=== PATIENT | male | born 1945 | race Caucasian/White ===

== ENCOUNTER 2021-03-28 10:54 | Inpatient (IN) | payer MEDICARE, OTHER, SELFPAY ==
[2021-03-28] VITALS (11 sets, daily range): BP systolic 119–154; BP diastolic 65–81; PULSE 78–111; RESP 16–26; TEMP 36.5–37.8; O2SAT 88–95; BMI 25.1; BMI 23.6
--- NOTE | 2021-03-28 12:51 | EDS_ITS ---
HPI History of Present Illness Chief Complaint: Shortness of Breath Informant: patient Onset/Context/Timing Onset: Weeks (1) Context: Gradual Onset Timing: Continuous Quality: Weakness Location: Generalized Worsened by: Nothing Relieved by: Nothing Narrative Narrative: Patient presents with generalized weakness that has been getting worse over the past week. Patient states he feels weak all over. Patient admits to a cough. Patient denies any shortness of breath. Patient states nothing makes his weakness better nothing makes it worse. Patient is concerned for possible Covid. Patient denies any chest pain. Patient denies any fevers or chills. Patient denies any nausea or vomiting but admits to decreased appetite. PFSH PFSH Medical History no medical history Home Medications NK 03/28/21 [History Last Taken Unknown] Allergy/AdvReac Type Severity Reaction Status Date / Time No Known Allergies Allergy Verified 07/08/13 10:57 Family History (Updated 03/28/21 @ 16:[address] Mulu Marcial MD) Mother Heart disease Hx CHF. Hypertension Father Heart disease Hx CAD, [place]. Myocardial infarction Hypertension Surgical History (Updated 03/28/21 @ 12:[address] Dharmesh Bryant, DO) History of herniorrhaphy Surgical History no surgical history Social History (Updated 03/28/21 @ 16:[address] Mulu Marcial MD) household members: family Smoking Status: Never smoker alcohol intake: never substance use type: does not use ROS ROS ED Constitutional Constitutional ED: Denies chills or fever(s) Eyes Eyes: Denies blurry vision or change in vision ENT ENT ED: Denies rhinorrhea or sore throat Cardiovascular Cardiovascular: Denies chest pain or palpitations Respiratory/Chest Respiratory/Chest: Reports cough; Denies dyspnea Gastrointestinal Gastrointestinal: Denies nausea or vomiting Genitourinary Genitourinary ED: Denies dysuria or hematuria Musculoskeletal Musculoskeletal: Denies back pain or neck pain Integumentary Denies abscess or rash Neurologic Neurologic: Reports weakness; Denies headache(s) Allergic/Immunologic Allergic/Immunologic ED: Denies mouth swelling or urticaria EXAM Physical Exam Const Vital Signs: 03/28/21 10:56 03/28/21 11:42 03/28/21 13:06 Temperature 100.1 F H Temperature Source Temporal Pulse Rate 111 H 87 Respiratory Rate 24 H 24 H Respiratory Effort Short of Breath Respiratory Depth Normal Respiratory Pattern Normal Blood Pressure 119/77 141/81 H Blood Pressure Mean 91 101 Pulse Ox 88 93 91 Oxygen Delivery Method Room Air Nasal Cannula Nasal Cannula Oxygen Flow Rate (L/min) 3 2 03/28/21 13:42 03/28/21 14:39 03/28/21 15:43 Temperature 98.2 F Temperature Source Oral Pulse Rate 84 84 94 Respiratory Rate 22 H 26 H 24 H Respiratory Effort Respiratory Depth Respiratory Pattern Tachypnea Blood Pressure 135/80 H 133/76 H Blood Pressure Mean 98 95 Pulse Ox 93 93 Oxygen Delivery Method Nasal Cannula Room Air Oxygen Flow Rate (L/min) 2 Positive well nourished and well developed General Appearance ED: well developed HEENT Reports moist mucous membranes Neck supple and no JVD Resp normal respiratory effort and clear to auscultation bilaterally Cardio regular rate, regular rhythm and no murmurs GI normal to inspection, nondistended, normoactive bowel sounds and non-tender Palpation: soft Extremity normal to inspection General Extremety ED: Negative for edema or tenderness General Extremity: Negative for edema Neuro oriented x3, CN's II-XII intact bilaterally and no sensory deficits noted Sensorium / Orientation: alert Motor Exam: strength 5/5 throughout Psych mental status grossly normal Skin no rashes or lesions noted MDM MDM MDM Narrative Medical decision making narrative: EKG was obtained. On my interpretation, it showed a normal sinus rhythm with a rate of 87. NC interval, QRS interval, and QTc intervals were all normal. Secor was normal. There are no acute ST or T wave changes. Portable 1 view chest x-ray was obtained. On my interpretation, lung montez right infrahilar and left lingular infiltrates. There is normal cardiac silhouette. Bony thorax is normal. Radiologist also interpreted the x- ray and agrees. CBC and comprehensive metabolic profile were obtained. BUN was 29 creatinine is 1.7. These are increased from previous results. Lactate was elevated at 3.6. COVID-19 rapid antigen was obtained and was negative. Patient was given IV fluids, albuterol inhaler, and Tylenol. Patient was started on Rocephin and Zithromax for pneumonia. Case was discussed with the hospitalist. She recommended obtaining a COVID-19 PCR test. This was ordered. She will admit the patient to her service. Patient and family understood and were agreeable with the plan. All questions were answered. Lab Data Attestation: I reviewed the patient's lab results. Labs: Laboratory Results - last 24 hr 03/28/21 03/28/21 03/28/21 11:39 11:39 11:39 WBC 8.4 RBC 5.28 Hgb 16.6 H Hct 49.2 MCV 93.2 MCH 31.4 MCHC 33.7 RDW Std Deviation 43.9 RDW Coeff of Yahaira 12.8 Plt Count 168 MPV 10.5 Immature Gran % (Auto) 2.500 H Neut % (Auto) 82.0 H Lymph % (Auto) 9.0 L [place] % (Auto) 6.1 Eos % (Auto) 0.0 Baso % (Auto) 0.4 Absolute Neuts (auto) 6.9 Absolute Lymphs (auto) 0.75 L Nucleated RBC % 0 Atypical Lymphocytes RARE Sodium 137 Potassium 3.7 Chloride 100 Carbon Dioxide 26.0 Anion Gap 11 BUN 29 H Creatinine 1.70 H Estim Creat Clear Calc 36.97 Est GFR (MDRD) Af Amer 51 L Est GFR (MDRD) Non-Af 42 L BUN/Creatinine Ratio 17.1 Glucose 135 H Lactic Acid 3.6 H* Calcium 8.9 Total Bilirubin 1.60 H AST 116 H ALT 100 H Alkaline Phosphatase 102 Troponin I High Sens 34 Total Protein 7.9 Albumin 3.1 L Globulin 4.8 H Albumin/Globulin Ratio 0.6 L Radiography Diagnostic Testing: Clinical Impression(s) from Imaging Studies Chest X-Ray 03/28/21 13:18 IMPRESSION: Mild degree of increased markings in the right infrahilar region as well as in the lingular segment of the left upper lobe. Follow-up is recommended. Electronically Signed: Andrea Zuniga MD at 13:35 EST , Service support , EKG Initial EKG: Attestation: I personally reviewed and interpreted this EKG as follows: Interpretation: Sinus Rhythm (87) and No Acute Injury Pattern Treatment and Re-Evaluation Vital Sign Attestation:: Vital signs were reviewed prior to admission. There are still mild tachypnea at 24 but other vital signs are stable. Discharge Plan Triage Chief Complaint: Shortness of Breath ED Provider: Schwiger,Dharmesh Dx/Rx/DC Orders Clinical Impression: Pneumonia, Acute kidney injury, Acidosis, lactic, Severe sepsis Prescriptions: No Action NK RF: 0 Primary Care Provider: Osmel Barrow Referrals: Osmel Barrow MD [Primary Care Provider] - Disposition Disposition: Acute Care Hospital [facility]
--- NOTE | 2021-03-28 12:55 | EKG12_ITS ---
Test Reason : SOB Blood Pressure : / mmHG Vent. Rate : 087 BPM Atrial Rate : 087 BPM P-R Int : 144 ms QRS Dur : 072 ms QT Int : 350 ms P-R-T Axes : 010 -26 -12 degrees QTc Int : 421 ms Normal sinus rhythm Anteroseptal PR, age undetermined, cannot be excluded Inferior PR, age undetermined, cannot be excluded Confirmed by CINTIA DRAPER, EVAN ([id number]), newspaper copy editor MANJULA MAI ([id number]) on 03/30/2021 8:16:59 AM Referred By: REJI Confirmed By:EVAN CHAMBERLAIN MD
[2021-03-28 13:16] LABS: Absolute Lymphocyte Count 0.75 X10^3/uL (0.83-4.51); Absolute Neutrophil Count 6.9 X10^3/uL (2.0-7.7); Basophil# 0.03 X10^3/uL; Basophil% 0.4 % (0-1); Hematocrit 49.2 % (40-54); Hemoglobin 16.6 g/dL (13.0-16.5); Lymphocyte # 0.75 X10^3/ul (0.83-4.51); Mean Corp Hgb Conc 33.7 g/dL (32-36); Mean Corpuscular Hgb 31.4 pg (27.0-32.0); Mean Corpuscular Volume 93.2 fL (80-94); Mean Platelet Vol. 10.5 fl (6.2-12.0); Monocyte# 0.51 X10^3/uL; Monocyte% 6.1 % (0-10); NRBC Flagged by Analyzer 0 % (0-5); Neutrophil # 6.85 X10^3/uL (2.7-7.7); POSITIVE MORPHOLOGY YES; Platelet Count 168 K/mm3 (150-450); RBC Distribution Width CV 12.8 % (11.6-14.6); RBC Distribution Width SD 43.9 fl (35.1-43.9); Red Blood Count 5.28 M/mm3 (4.6-6.2); White Blood Count 8.4 K/mm3 (4.4-11.0)
--- NOTE | 2021-03-28 13:18 | RAD_ITS ---
STUDY: X-RAY CHEST REASON FOR EXAM: Male, 75 years old. Cough TECHNIQUE: Single AP portable view of the chest. COMPARISON: None. FINDINGS: EKG electrodes are seen. Mild increased markings are seen in the right infrahilar region as well as in the lingular segment of the left upper lobe. Follow-up is recommended. There is no demonstrated pleural abnormality. Normal size heart. Normal mediastinum and juventino. Normal visualized pulmonary arteries. There is atherosclerotic calcification of the aortic arch with tortuosity. There are diffuse degenerative changes of the visualized thoracic spine. There is degenerative osteoarthritis of the bilateral shoulders. There is no demonstrated abnormality of the visualized soft tissue structures of the upper abdomen. RAD/Chest 1 View (Portable) IMPRESSION: Mild degree of increased markings in the right infrahilar region as well as in the lingular segment of the left upper lobe. Follow-up is recommended. Electronically Signed: Andrea Zuniga MD at 13:35 EST , Service support ,
[2021-03-28 13:22] LABS: Differential Indicated SCAN CRITERIA MET
[2021-03-28 13:30] LABS: ALB/GLOB Ratio 0.6 RATIO (0.9-2.4); AST(SGOT) 116 U/L (15-37); Alanine Aminotransfer ALT/SGPT 100 U/L (16-61); Albumin, Serum 3.1 g/dL (3.2-5.0); Alkaline Phosphatase 102 U/L (45-117); Anion Gap 11 (5-15); BUN 29 mg/dL (7-18); BUN/Creat Ratio 17.1 RATIO (10-20); Calcium,Total 8.9 mg/dL (8.5-10.1); Chloride 100 mmol/L (98-107); EST Glomerular Filtration Rate 42 mL/min (>60); Est Glom Filt Rate - Afr Amer 51 mL/min (>60); Estimated Creatinine Clearance 36.97 ml/min; Globulin 4.8 g/dL (2.2-4.2); Glucose 135 mg/dL (74-106); Potassium 3.7 mmol/L (3.5-5.1); Protein, Total 7.9 g/dL (6.4-8.2); Sodium Level 137 mmol/L (136-145); Troponin-I HS 34 pg/mL (3.0-78.0)
[2021-03-28 13:34] LABS: Lactic Acid 3.6 mmol/L (0.4-1.9)
[2021-03-28 13:37] LABS: Atypical Lymphocyte RARE %
[2021-03-28] MEDS: Acetaminophen 500 MG Tablet 1000 MG PO (14:38)
[2021-03-28] MEDS: 0.9% Normal Saline 1,000 ML 1000 ML IV (15:36)
--- NOTE | 2021-03-28 16:21 | HP.PCM.HOS_ITS ---
HPI - General General Date of Admission: 03/28/21 Date of Service: 03/28/21 Chief Complaint: COVID +, worsening respiratory symptoms. HPI Narrative The patient is a 75 y/o M w/ no marked PMHx reported but no routine medical care who presents to the [facility] ED on 03/28/21 with history of weakness, fatigue, malaise, body aches, cough and dyspnea worsening x 1 week with oxygenation at home ranging 84 to 86% and upon triage evaluation 88 to 92% with family eventually bring in the patient for consideration for monoclonal infusions. Patient denies specifically any fevers, chills, nausea, emesis, diarrhea, headache, sore throat. Patient has not been vaccinated and is COVID-19. Patient still does work by choice part-time at a grocery store. Work-up in the ED included T1 100.1, heart rate initially 111, respiratory rate 24, 88% on room air with improvement to 93% on 2 L nasal cannula, CBC with WC 8.4, hemoglobin 16.6, platelet 168 with increased immature granulocytes with lymphopenia, CMP with BUN/creatinine 29/1.70, glucose 135, lactic acid 3.6, total bilirubin 1.60, AST/ALT 116/100, high-sensitivity troponin initial 34, chest x-ray with mild degree increased markings right infrahilar region as well as lingular segment left upper lobe, rapid Covid antigen negative, blood culture x2 pending per ED. in the ED patient ministered Rocephin and azithromycin as well as albuterol inhaler, Tylenol and normal saline. Discussed current presentation with ED physician and requested Covid PCR be obtained. [facility] Medical History (Updated 03/28/21 @ 17:[address] Mulu Marcial MD) No significant past medical history Medical History no medical history Home Medications NK 03/28/21 [History Last Taken Unknown] Allergy/AdvReac Type Severity Reaction Status Date / Time No Known Allergies Allergy Verified 07/08/13 10:57 Family History (Updated 03/28/21 @ 16:[address] Mulu Marcial MD) Mother Heart disease Hx CHF. Hypertension Father Heart disease Hx CAD, [place]. Myocardial infarction Hypertension Surgical History (Updated 03/28/21 @ 12:[address] Dharmesh Bryant, DO) History of herniorrhaphy Surgical History no surgical history Social History (Updated 03/28/21 @ 17:[address] uMlu Marcial MD) household members: spouse Smoking Status: Never smoker alcohol intake: never substance use type: does not use ROS ROS Narrative Admission Review of Systems: CONSTITUTIONAL: No weight loss, fever, chills, + weakness or fatigue. HEENT: + Headache. Eyes: No visual loss, blurred vision, double vision or yellow sclerae. Ears, Nose, Throat: No hearing loss, sneezing. SKIN: No rash or itching, lesions, wounds. CARDIOVASCULAR: No chest pain, chest pressure or chest discomfort, palpitations, edema, orthopnea, syncopal events. RESPIRATORY: + shortness of breath, cough, No marked sputum, wheezing, hemoptysis. GASTROINTESTINAL: + anorexia, No nausea, vomiting, diarrhea, abdominal pain, melena, BRBPR. GENITOURINARY: No dysuria, frequency, urgency or retention. NEUROLOGICAL: No headache, dizziness, syncope, paralysis, ataxia, numbness or tingling in the extremities, focal weakness, change in bowel or bladder control, seizure. MUSCULOSKELETAL: No muscle, back pain, joint pain or stiffness. HEMATOLOGIC: No anemia, bleeding or bruising. LYMPHATICS: No enlarged nodes. No history of splenectomy. PSYCHIATRIC: No history of depression or anxiety. ENDOCRINOLOGIC: No reports of sweating, cold or heat intolerance. No polyuria or polydipsia. ALLERGIES: No history of asthma, hives, eczema or rhinitis. Vital Signs Vital Signs Vital Signs: 03/28/21 10:56 03/28/21 11:42 03/28/21 13:06 Temperature 100.1 F H Temperature Source Temporal Pulse Rate 111 H 87 Respiratory Rate 24 H 24 H Respiratory Effort Short of Breath Respiratory Depth Normal Respiratory Pattern Normal Blood Pressure 119/77 141/81 H Blood Pressure Mean 91 101 Pulse Ox 88 93 91 Oxygen Delivery Method Room Air Nasal Cannula Nasal Cannula Oxygen Flow Rate (L/min) 3 2 03/28/21 13:42 03/28/21 14:39 03/28/21 15:43 Temperature 98.2 F Temperature Source Oral Pulse Rate 84 84 94 Respiratory Rate 22 H 26 H 24 H Respiratory Effort Respiratory Depth Respiratory Pattern Tachypnea Blood Pressure 135/80 H 133/76 H Blood Pressure Mean 98 95 Pulse Ox 93 93 Oxygen Delivery Method Nasal Cannula Room Air Oxygen Flow Rate (L/min) 2 Weight Weight: 170 lb Body Mass Index (BMI) 25.1 Physical Exam Narrative Physical Examination: General: Awake, alert, oriented x 3 and cooperative, seated upright in the ED bed, fatigued and ill-appearing, no evidence of any distress. Skin: Normal color, normal turgor, no icterus, no cyanosis. HEENT: AT/NC, EOMI, PERRLA, moderately dry MM, no carotid bruits or JVD noted. Lungs: Mildly diminished, greater bases, mildly rhonchorous right base and mid posteriorly, moderate effort, no evidence of any respiratory distress, no rales or wheezing. Heart: Regular rate with regular rhythm; no gallop, rub audible. Abdomen: Soft, NTTP, ND, mildly hyperactive bowel sounds, no obvious evidence of HSM. Extremities: No cyanosis, clubbing, or edema. Neurological: Patient awake, alert, oriented as noted, cognitive function intact; pupils equally reactive to light and accommodation, cranial nerves II- XII grossly normal, moving all 4 extremities, no focal deficits, strength mildly to moderately globally decreased secondary to acute presentation. Psychiatric: Affect appears fatigued, ill-appearing, no evidence of any respiratory distress, no acute evidence of depressive or anxiety feelings. Results Lab / Micro Data Result Diagrams: 03/28/21 11:39 03/28/21 11:39 Labs: Laboratory Results - last 24 hr 03/28/21 11:39: WBC 8.4, RBC 5.28, Hgb 16.6 H, Hct 49.2, MCV 93.2, MCH 31.4, MCHC 33.7, RDW Std Deviation 43.9, RDW Coeff of Yahaira 12.8, Plt Count 168, MPV 10.5, Immature Gran % (Auto) 2.500 H, Neut % (Auto) 82.0 H, Lymph % (Auto) 9.0 L , [place] % (Auto) 6.1, Eos % (Auto) 0.0, Baso % (Auto) 0.4, Absolute Neuts (auto) 6.9, Absolute Lymphs (auto) 0.75 L, Nucleated RBC % 0, Atypical Lymphocytes RARE 03/28/21 11:39: Sodium 137, Potassium 3.7, Chloride 100, Carbon Dioxide 26.0, Anion Gap 11, BUN 29 H, Creatinine 1.70 H, Estim Creat Clear Calc 36.97, Est GFR (MDRD) Af Amer 51 L, Est GFR (MDRD) Non-Af 42 L, BUN/Creatinine Ratio 17.1, Glucose 135 H, Calcium 8.9, Total Bilirubin 1.60 H, AST 116 H, ALT 100 H, Alkaline Phosphatase 102, Troponin I High Sens 34, Total Protein 7.9, Albumin 3.1 L, Globulin 4.8 H, Albumin/Globulin Ratio 0.6 L 03/28/21 11:39: Lactic Acid 3.6 H* Micro: Microbiology 03/28/21 11:39 Nasal Secretion SARS-CoV-2 Antigen (Rapid) - Final Radiology Impression Chest X-Ray 03/28/21 13:18 IMPRESSION: Mild degree of increased markings in the right infrahilar region as well as in the lingular segment of the left upper lobe. Follow-up is recommended. Electronically Signed: Andrea Zuniga MD at 13:35 EST , Service support , Assessment & Plan Assessment/Plan (1) Pneumonia: QUALIFIERS: Laterality: bilateral Lung location: unspecified part of lung Pneumonia type: due to unspecified organism Qualified Code(s): J18.9 - Pneumonia, unspecified organism (2) Acute kidney injury: (3) Acidosis, lactic: PLAN: The patient is a 75 y/o M w/ no marked PMHx reported but no routine medical care who presents to the [facility] ED on 03/28/21 with history of weakness, fatigue, malaise, body aches, cough and dyspnea worsening x 1 week with oxygenation at home ranging 84 to 86% and upon triage evaluation 88 to 92% with family eventually bring in the patient for consideration for monoclonal infusions. #1. Acute Severe Sepsis secondary to Acute Hypoxia secondary to Acute Bilateral Pneumonia secondary to possibly bilateral bacterial pneumonia, community- acquired versus Acute Viral Syndrome, COVID-19: Will admit to the medical surgical telemetry floor, maintain on COVID precautions pending Covid PCR, will maintain on oxygen with wean as tolerated to room air, PRN albuterol, HOB, IS parameters w/ pending sputum cultures, respiratory viral panel and urine antigens, will additionally obtain Covid inflammatory panel as Covid PCR is pending as noted D-dimer, procalcitonin, CRP, CPK, Ferritin, LDH, trop and BNP, continue supportive care including q 2 hour turning including prone given no prone bed availability and judicious hydration, closely monitor for worsening status for ARDS and multiorgan failure, will continue IV Rocephin and azithromycin but de-escalate off if Covid PCR is positive, will initiate and continue IV decadron x 10 doses if Covid PCR is positive, given presentation timeline patient is currently at day #10 therefore if Covid PCR does return positive given creatinine clearance greater than 30 will also initiate IV remdesivir but defer to discretion of Infectious disease. #2. Acute kidney injury: Secondary to acute presentation #1 with likely GI losses/poor intake. Admission BUN/Cr 29/1.70, prior baseline creatinine noted to be 0.9 however this was in 2013. Will hydrate, hold nephrotoxic medications and repeat chemistry in AM. If no improvement would plan FeNa assessment. #3. Lactic acidosis: Admission lactic acid 3.6, likely secondary to acute presentation #1 with hypoxia, will trend per facility protocol, judicious hydration given acute presentation. #4. Elevated LFTs, bilirubin: Admission total bilirubin 1.60, AST/LT 116/100, likely secondary to acute presentation of a 1, continue to trend. #5. Mild hyperglycemia: Admission glucose 135, possibly stress response, will continue to trend and if appropriate add hemoglobin A1c. #6. DVT prophylaxis: SCDs, renally dosed Lovenox. #7. CODE status: Patient GREGG is his and living will is currently in place. Discussed CODE status at length including difference between FULL code, DNR-CCA and DNR-CC status. Following discussions about the differences in these status, requested DNR-CCA, no intubation status. Advanced Care Planning Face to Face Time: 16 minutes. Charges/Coding Visit Charges Inpatient E&M: 10723 Init Hosp L3 Procedures Hospitalists Procedures: 13233 Advncd Care Plan 30 Min
[2021-03-28 17:10] LABS: Reflex Lactate? Y
[2021-03-28 17:57] LABS: Procalcitonin 0.26 ng/mL (0.00-0.09)
[2021-03-28 17:58] LABS: BNP,B-Type NATRIURETIC PEPTIDE 41.6 pg/mL (0-100)
[2021-03-28 18:05] LABS: D-Dimer Quantitative (DVT/PE) 1.91 FEU/ug/m (0.27-0.49)
[2021-03-28 18:08] LABS: Lactic Acid 1.4 mmol/L (0.4-1.9)
[2021-03-28 18:18] LABS: Ferritin 3731 ng/mL (26-388); LDH 413 U/L (87-241)
--- NOTE | 2021-03-28 18:30 | PCS.PANDOC ---
PANDEMIC DOCUMENTATION INITIATED: Date: 03/28/2021 Time: 183
[2021-03-28] MEDS: 0.9% Normal Saline 1,000 ML 100 ML IV (18:59)
[2021-03-28] MEDS: dexAMETHasone 10 MG/ML Vial 6 MG IV (21:45)
[2021-03-29] VITALS (13 sets, daily range): BP systolic 143–159; BP diastolic 73–83; PULSE 63–85; RESP 16–18; TEMP 36.4–37.3; O2SAT 88–96
--- NOTE | 2021-03-29 07:03 | VDLE_ITS ---
Reason For Study: Elevated D-dimer RIGHT LEFT GSV is normal. GSV is normal. CFV, FV, and PopV are compressible. CFV, FV, and PopV are compressible. T/P Trunk is compressible. T/P Trunk is compressible. PTV is compressible. PTV is compressible. RT PerV is compressible. LT PerV is compressible. Procedure This is a venous duplex using B-mode, color flow and spectral Doppler. Exam performed portable in patient room. A preliminary report was called and/or faxed to [facility]. VL/Venous Duplex US - Garry Extrem Interpretation Summary No evidence for acute deep venous thrombosis bilateral lower extremities with p atent and compressible bilateral great saphenous veins. Ordering Physician: Mulu Marcial Referring Physician: Osmel Barrow Performed By: Ora Curiel RVT
[2021-03-29 07:27] LABS: Absolute Lymphocyte Count 0.67 X10^3/uL (0.83-4.51); Absolute Neutrophil Count 5.2 X10^3/uL (2.0-7.7); Basophil# 0.02 X10^3/uL; Basophil% 0.3 % (0-1); Hematocrit 40.4 % (40-54); Hemoglobin 13.5 g/dL (13.0-16.5); Lymphocyte # 0.67 X10^3/ul (0.83-4.51); Lymphocyte % 10.9 % (19-41); Mean Corp Hgb Conc 33.4 g/dL (32-36); Mean Corpuscular Hgb 30.8 pg (27.0-32.0); Mean Platelet Vol. 10.7 fl (6.2-12.0); Monocyte# 0.24 X10^3/uL; Monocyte% 3.9 % (0-10); NRBC Flagged by Analyzer 0 % (0-5); Neutrophil # 5.18 X10^3/uL (2.7-7.7); Neutrophil % 84.2 % (47-70); POSITIVE MORPHOLOGY YES; Platelet Count 158 K/mm3 (150-450); RBC Distribution Width CV 12.6 % (11.6-14.6); RBC Distribution Width SD 43.2 fl (35.1-43.9); Red Blood Count 4.39 M/mm3 (4.6-6.2); White Blood Count 6.2 K/mm3 (4.4-11.0)
[2021-03-29 07:36] LABS: Differential Indicated SCAN CRITERIA MET
[2021-03-29 07:54] LABS: ALB/GLOB Ratio 0.6 RATIO (0.9-2.4); AST(SGOT) 80 U/L (15-37); Alanine Aminotransfer ALT/SGPT 74 U/L (16-61); Albumin, Serum 2.3 g/dL (3.2-5.0); Alkaline Phosphatase 83 U/L (45-117); Anion Gap 8 (5-15); BUN 27 mg/dL (7-18); BUN/Creat Ratio 30.8 RATIO (10-20); Calcium,Total 8.3 mg/dL (8.5-10.1); Chloride 107 mmol/L (98-107); Creatinine, Serum 0.88 mg/dL (0.70-1.30); EST Glomerular Filtration Rate 90 mL/min (>60); Est Glom Filt Rate - Afr Amer 108 mL/min (>60); Estimated Creatinine Clearance 71.41 ml/min; Glucose 149 mg/dL (74-106); Protein, Total 6.3 g/dL (6.4-8.2); Sodium Level 139 mmol/L (136-145)
[2021-03-29] MEDS: Enoxaparin 30 MG/0.3 ML Syringe SC (07:56)
[2021-03-29] MEDS: dexAMETHasone 10 MG/ML Vial 6 MG IV (07:56)
[2021-03-29] MEDS: 0.9% Saline Lock 10 ML Syringe IV ×2 (07:57→20:58)
[2021-03-29 09:09] LABS: Reactive Lymphocyte RARE
--- NOTE | 2021-03-29 10:58 | CASEMGMT ---
RN CM Assessment Introduced role of RN CM to patient. Patient is alert, oriented and able to participate in RN CM Assessment. Care providers, pharmacy, and demographics verified. Admit Dx: Bilt PNA, Hypoxia, Suspected Covid Re-Admit: No Barriers/Issues: None. Patient states has a good family support system with his children. States was ill but getting better- did not test for Covid. States they both sleep in separate rooms and use separate bathroom. PCP: Osmel Barrow Specialists: None Preferred Pharmacy: [facility] Insurance: [facility] A/B, Physician [place] Rx Benefit: Yes LNOK: Filomena Arce LW/HPOA: States he has completed AD and son Prateek Arce is his HPOA. Aware if brought in- a copy will be scanned on file. Living Arrangements: Lives with in [facility], 1 step to enter. ADL?s: Independent with ambulation and ADLs Transportation: Both patient and drive, likely to transport upon DC. DME: None HHC: None SNF: None Goal: Home and does not think will have any needs. States has walked very little in room but does not think will need HHC. Preference for DME should Home O2 be needed: [employer] or [employer]- List was provided. Other list for HH, SNF provided. DC PLAN: Home with possible Home O2- [employer] or [employer]. TREVON [place]
--- NOTE | 2021-03-29 17:14 | PN.HOSP_ITS ---
Subjective Subjective Patient overnight with no acute events per self and per nursing report. He remained on lower oxygen requirements fortunately. Patient did have elevated dimer with renal function not conducive to CT therefore duplex ultrasound obtained 03/29/2021 with no evidence for acute DVT in the bilateral lower extremities. Patient notes feeling mildly improved since initial ED presentation. Did discuss that patient did have positive Covid PCR therefore antibiotics have been discontinued and patient initiated on IV Decadron therapy. Patient renal function also although elevated upon presentation creatinine clearance allowable for initiation of remdesivir which was started. Patient denies fevers, chills, nausea, emesis, abdominal pain, chest pain. Objective Data Objective Data Vital Signs: Vital Signs Temp Pulse Resp BP Pulse Ox 97.5 F L 85 18 143/81 H 88 03/29/21 14:42 03/29/21 15:00 03/29/21 14:42 03/29/21 14:42 03/29/21 16:07 Oxygen Flow Rate (L/min) 1.5 Oxygen Delivery Method Nasal Cannula Weight: 160 lb 4.417 oz Body Mass Index (BMI) 23.6 Intake & Output: Intake and Output for Last 24 Hours 03/27/21 03/28/21 03/29/21 23:59 23:59 23:59 Intake Total 1795 / 1795 1740 / 1740 Balance 1795 / 1795 1740 / 1740 Medical Nutrition Assessment Dietitian: Malnutrition Criteria Met Start: 03/29/21 15:04 Freq: Status: Active Protocol: Document 03/29/21 15:04 RMA (Rec: 03/29/21 15:04 RMA [id number]) Nutrition Malnutrition Evidence of Malnutrition Exists Yes Malnutrition (severe): Acute Illness/Injury Evidenced By Suboptimal Energy Intake ( Severe),Weight Loss (Severe) Clinical Problem Acute Disease or Injury Related Malnutrition Etiology Severe protein-calorie malnutrition in the context of acute illness related to inadequate oral intake Signs/Symptoms as evidenced by ~5-6% wt loss x 2 weeks and PO meeting less than 50% 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 Status Active Problem Recommendation Dietitian Recommendations/Changes Continue regular diet as ordered. Will add chocolate ensure compact TID w/ meals for calorie/protein repletion. Lab / Micro Data Result Diagrams: 03/29/21 06:55 03/29/21 06:55 Labs: Laboratory Results - last 24 hr 03/28/21 11:39: Ferritin 3731 H, Lactate Dehydrogenase 413 H, C-React Prot Ext Range 128.00 H 03/28/21 11:39: B-Natriuretic Peptide 41.6 03/28/21 11:39: Procalcitonin 0.26 H 03/28/21 11:59: D-Dimer Quant (PE/DVT) 1.91 H* 03/28/21 16:50: COVID-19 ([facility]) Detected 03/28/21 17:24: Lactic Acid 1.4 03/29/21 06:55: WBC 6.2, RBC 4.39 L, Hgb 13.5, Hct 40.4, MCV 92.0, MCH 30.8, MCHC 33.4, RDW Std Deviation 43.2, RDW Coeff of Yahaira 12.6, Plt Count 158, MPV 10.7, Immature Gran % (Auto) 0.700, Neut % (Auto) 84.2 H, Lymph % (Auto) 10.9 L, [place] % (Auto) 3.9, Eos % (Auto) 0.0, Baso % (Auto) 0.3, Absolute Neuts (auto) 5.2, Absolute Lymphs (auto) 0.67 L, Nucleated RBC % 0, Reactive Lymphocytes RARE 03/29/21 06:55: Sodium 139, Potassium 4.0, Chloride 107, Carbon Dioxide 24.0, Anion Gap 8, BUN 27 H, Creatinine 0.88, Estim Creat Clear Calc 71.41, Est GFR (MDRD) Af Amer 108, Est GFR (MDRD) Non-Af 90, BUN/Creatinine Ratio 30.8 H, Glucose 149 H, Calcium 8.3 L, Total Bilirubin 0.80, AST 80 H, ALT 74 H, Alkaline Phosphatase 83, Total Protein 6.3 L, Albumin 2.3 L, Globulin 4.0, Albumin/Globulin Ratio 0.6 L Micro: Microbiology 03/28/21 16:50 Mucosa - Nasopharyngeal Respiratory Panel (PCR) - Final 03/28/21 11:39 Nasal Secretion SARS-CoV-2 Antigen (Rapid) - Final Radiography Diagnostic Testing: Radiology Impression Venous Doppler Study 03/29/21 07:03 Interpretation Summary No evidence for acute deep venous thrombosis bilateral lower extremities with patent and compressible bilateral great saphenous veins. Ordering Physician: Mulu Marcial Referring Physician: Osmel Barrow Performed By: Ora Curiel RVT Physical Exam Narrative Physical Examination: General: Awake, alert, oriented x 3 and cooperative, seated upright in the PCU bed, fatigued appearing, notes feeling improved since day prior. Skin: Normal color, normal turgor, no icterus, no cyanosis. HEENT: AT/NC, EOMI, PERRLA, improved mildly dry MM Lungs: Mildly diminished, greater bases, mildly rhonchorous right base and mid posteriorly, improving effort, no rales or wheezing. Heart: Regular rate with regular rhythm; no gallop, rub audible. Abdomen: Soft, NTTP, ND, normalized bowel sounds. Extremities: No cyanosis, clubbing, or edema. Neurological: Patient awake, alert, oriented as noted, cognitive function intact; pupils equally reactive to light and accommodation, cranial nerves II- XII grossly normal, moving all 4 extremities, no focal deficits, strength mohsen ins mildly to moderately globally decreased secondary to acute presentation. Psychiatric: Affect appears fatigued, no acute evidence of depressive or anxiety feelings. Assessment & Plan Assessment/Plan (1) Pneumonia: QUALIFIERS: Pneumonia type: due to unspecified organism Laterality: bilateral Lung location: unspecified part of lung Qualified Code(s): J18.9 - Pneumonia, unspecified organism (2) Acute kidney injury: (3) Acidosis, lactic: PLAN: The patient is a 75 y/o M w/ no marked PMHx reported but no routine medical care who presents to the [facility] ED on 03/28/21 with history of weakness, fatigue, malaise, body aches, cough and dyspnea worsening x 1 week with oxygenation at home ranging 84 to 86% and upon triage evaluation 88 to 92% with family eventually bring in the patient for consideration for monoclonal infusions. #1. Acute Severe Sepsis secondary to Acute Hypoxia secondary to Acute Bilateral Pneumonia secondary to Acute Viral Syndrome, COVID-19: Patient was admitted to medical surgical telemetry for, Covid PCR did return positive, patient m aintained on Covid precautions to be continued through 04/09/21, sputum cultures requested, respiratory viral panel negative, urine antigens negative, Covid inflammatory panel obtained, duplex ultrasound bilateral lower extremities obtained with no acute DVTs noted initially deferred CTPA given patient elevated renal function day prior with judicious hydration, initiated and maintained on IV decadron x 10 doses and given presentation timeline with creatinine clearance greater than 30 patient also initiated and continued on IV remdesivir but defer to discretion of Infectious disease. #2. Acute kidney injury: Secondary to acute presentation #1 with likely GI losses/poor intake. Admission BUN/Cr 29/1.70, prior baseline creatinine noted to be 0.9 however this was in 2013. Patient judiciously hydrated overnight with hold on any nephrotoxic regimen, 03/29/2021 BUN/creatinine significantly improved 27/0.88, resolved. #3. Lactic acidosis: Admission lactic acid 3.6, likely secondary to acute presentation #1 with hypoxia, will trend per facility protocol, judicious hydration given acute presentation. #4. Elevated LFTs, bilirubin: Admission total bilirubin 1.60, AST/LT 116/100, likely secondary to acute presentation #1, 03/29/2021 AST/ALT 80/74, slowly improving, continue to trend. #5. Mild hyperglycemia: Admission glucose 135, possibly stress response, repeat also elevated however is on steroids, to be cautious will obtain A1c. #6. DVT prophylaxis: SCDs, renally dosed Lovenox. #7. CODE status: Patient GREGG is his and living will is currently in place. DNR-CCA, no intubation status. Charges/Coding Visit Charges Inpatient E&M: 80368 Subs Hosp L2
[2021-03-30] VITALS (7 sets, daily range): BP systolic 142–158; BP diastolic 66–70; PULSE 67–84; RESP 16–18; TEMP 36.2–36.9; O2SAT 88–97
--- NOTE | 2021-03-30 06:36 | PN.HOSP_ITS ---
Subjective Subjective Desaturating in the room with activity, increased to 3.5L NC. Objective Data Objective Data Vital Signs: Vital Signs Temp Pulse Resp BP Pulse Ox 98.5 F 67 18 158/70 H 94 03/30/21 03:27 03/30/21 03:27 03/30/21 03:27 03/30/21 03:27 03/30/21 03:27 Oxygen Flow Rate (L/min) 3.5 Oxygen Delivery Method Nasal Cannula Weight: 161 lb 9.581 oz Body Mass Index (BMI) 23.6 Intake & Output: Intake and Output for Last 24 Hours 03/28/21 03/29/21 03/30/21 23:59 23:59 23:59 Intake Total 1795 / 1795 2640 / 2640 240 / 240 Output Total 150 / 150 Balance 1795 / 1795 2490 / 2490 240 / 240 Medical Nutrition Assessment Dietitian: Malnutrition Criteria Met Start: 03/29/21 15:04 Freq: Status: Active Protocol: Document 03/29/21 15:04 RMA (Rec: 03/29/21 15:04 RMA [id number]) Nutrition Malnutrition Evidence of Malnutrition Exists Yes Malnutrition (severe): Acute Illness/Injury Evidenced By Suboptimal Energy Intake ( Severe),Weight Loss (Severe) Clinical Problem Acute Disease or Injury Related Malnutrition Etiology Severe protein-calorie malnutrition in the context of acute illness related to inadequate oral intake Signs/Symptoms as evidenced by ~5-6% wt loss x 2 weeks and 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 Will add chocolate ensure compact TID w/ meals for calorie/protein repletion. Lab / Micro Data Result Diagrams: 03/29/21 06:55 03/29/21 06:55 Labs: Laboratory Results - last 24 hr 03/29/21 06:55: WBC 6.2, RBC 4.39 L, Hgb 13.5, Hct 40.4, MCV 92.0, MCH 30.8, MCHC 33.4, RDW Std Deviation 43.2, RDW Coeff of Yahaiar 12.6, Plt Count 158, MPV 10.7, Immature Gran % (Auto) 0.700, Neut % (Auto) 84.2 H, Lymph % (Auto) 10.9 L, [place] % (Auto) 3.9, Eos % (Auto) 0.0, Baso % (Auto) 0.3, Absolute Neuts (auto) 5.2, Absolute Lymphs (auto) 0.67 L, Nucleated RBC % 0, Reactive Lymphocytes RARE 03/29/21 06:55: Sodium 139, Potassium 4.0, Chloride 107, Carbon Dioxide 24.0, Anion Gap 8, BUN 27 H, Creatinine 0.88, Estim Creat Clear Calc 71.41, Est GFR (MDRD) Af Amer 108, Est GFR (MDRD) Non-Af 90, BUN/Creatinine Ratio 30.8 H, Glucose 149 H, Calcium 8.3 L, Total Bilirubin 0.80, AST 80 H, ALT 74 H, Alkaline Phosphatase 83, Total Protein 6.3 L, Albumin 2.3 L, Globulin 4.0, Albumin/Globulin Ratio 0.6 L Micro: Microbiology 03/29/21 21:42 Urine, Clean Catch Legionella Antigen - Final 03/29/21 21:42 Urine, Clean Catch Streptococcus pneumoniae Antigen (M - Final 03/28/21 16:50 Mucosa - Nasopharyngeal Respiratory Panel (PCR) - Final 03/28/21 11:39 Nasal Secretion SARS-CoV-2 Antigen (Rapid) - Final Radiography Diagnostic Testing: Radiology Impression Venous Doppler Study 03/29/21 07:03 Interpretation Summary No evidence for acute deep venous thrombosis bilateral lower extremities with patent and compressible bilateral great saphenous veins. ____ Ordering Physician: Mulu Marcial Referring Physician: Osmel Barrow Performed By: Ora Curiel RVT
[2021-03-30 07:36] LABS: Absolute Lymphocyte Count 0.99 X10^3/uL (0.83-4.51); Absolute Neutrophil Count 6.6 X10^3/uL (2.0-7.7); Basophil# 0.02 X10^3/uL; Basophil% 0.2 % (0-1); Eosinophil# 0.19 X10^3/uL; Eosinophils% 2.2 % (0-5); Lymphocyte # 0.99 X10^3/ul (0.83-4.51); Lymphocyte % 11.6 % (19-41); Mean Corp Hgb Conc 34.2 g/dL (32-36); Mean Corpuscular Hgb 31.1 pg (27.0-32.0); Mean Corpuscular Volume 90.9 fL (80-94); Monocyte# 0.65 X10^3/uL; Monocyte% 7.6 % (0-10); NRBC Flagged by Analyzer 0 % (0-5); Neutrophil # 6.61 X10^3/uL (2.7-7.7); Neutrophil % 77.2 % (47-70); POSITIVE MORPHOLOGY YES; Platelet Count 180 K/mm3 (150-450); RBC Distribution Width CV 12.6 % (11.6-14.6); RBC Distribution Width SD 42.2 fl (35.1-43.9); Red Blood Count 4.18 M/mm3 (4.6-6.2); White Blood Count 8.6 K/mm3 (4.4-11.0)
[2021-03-30 08:07] LABS: Differential Indicated SCAN CRITERIA MET
[2021-03-30 08:08] LABS: ALB/GLOB Ratio 0.6 RATIO (0.9-2.4); AST(SGOT) 67 U/L (15-37); Alanine Aminotransfer ALT/SGPT 71 U/L (16-61); Albumin, Serum 2.2 g/dL (3.2-5.0); Alkaline Phosphatase 86 U/L (45-117); Anion Gap 5 (5-15); BUN 26 mg/dL (7-18); BUN/Creat Ratio 31.6 RATIO (10-20); Calcium,Total 8.5 mg/dL (8.5-10.1); Chloride 109 mmol/L (98-107); Creatinine, Serum 0.82 mg/dL (0.70-1.30); EST Glomerular Filtration Rate 96 mL/min (>60); Est Glom Filt Rate - Afr Amer 117 mL/min (>60); Estimated Creatinine Clearance 76.64 ml/min; Globulin 3.7 g/dL (2.2-4.2); Glucose 144 mg/dL (74-106); Potassium 3.8 mmol/L (3.5-5.1); Protein, Total 5.9 g/dL (6.4-8.2); Sodium Level 140 mmol/L (136-145)
[2021-03-30 09:14] LABS: Reactive Lymphocyte RARE
[2021-03-30 09:46] LABS: Hemoglobin A1c 6.1 % (3.8-5.6)
[2021-03-30] MEDS: Enoxaparin 30 MG/0.3 ML Syringe SC (10:04)
[2021-03-30] MEDS: dexAMETHasone 10 MG/ML Vial 6 MG IV (10:05)
[2021-03-30] MEDS: 0.9% Saline Lock 10 ML Syringe IV (10:05)
--- NOTE | 2021-03-30 10:54 | CASEMGMT ---
Pt qualifies for home oxygen 2L w/ exertion and referral faxed to [facility] at this time. Call to Willie at [facility] to notify of referral, voices understanding. Pt updated on home oxygen and process, voices understanding. Pt voices no further concerns with going home and states has been up in room without difficulty. Adri GARCES CM
--- NOTE | 2021-03-30 11:06 | DS.PCM_ITS ---
Providers Date of Admission: 03/28/21 Primary Care Physician: Dr. Osmel Barrow MD Reason For Visit: BL PNA, HYPOXIA, SUSPECT COVID Diagnosis Discharge Diagnosis (1) Pneumonia: Status: Acute Code(s): J18.9 - Pneumonia, unspecified organism Qualifiers: Laterality: bilateral Lung location: unspecified part of lung Pneumonia type: due to unspecified organism Qualified Code(s): J18.9 - Pneumonia, unspecified organism (2) Acute kidney injury: Status: Acute Code(s): N17.9 - Acute kidney failure, unspecified (3) Acidosis, lactic: Status: Acute Code(s): E87.2 - Acidosis Medications at Discharge Home Medications aspirin 81 mg PO DAILY 14 Days #14 tab 03/30/21 dexamethasone [Decadron] 6 mg PO DAILY 8 Days #8 tab 03/30/21 pantoprazole [Protonix] 20 mg PO BID 14 Days #28 tab 03/30/21 Hospital Course Operations None Procedures EKG Summary of Care Provided Minutes Spent on Discharge: 35 Hospital Course: DISCHARGE NOTE: Discharge Diagnoses: #1. Acute Severe Sepsis secondary to Acute Hypoxia secondary to Acute Bilateral Pneumonia secondary to Acute Viral Syndrome, COVID-19 #2. Acute kidney injury, Secondary to acute presentation #1 with likely GI losses/poor intake, resolved #3. Lactic acidosis, secondary to #1 with dehydration as well as hypoxia #4. Elevated LFTs, bilirubin, secondary to #1. #5. Mild hyperglycemia secondary to prediabetes mellitus type II (hemoglobin A1c 6.1%) #6. Mildly elevated blood pressure above goal with no history of hypertension Discharge Summary: The patient is a 75 y/o M w/ no marked PMHx reported but no routine medical care who presented to the [facility] ED on 03/28/21 with history of weakness, fatigue, malaise, body aches, cough and dyspnea worsening x 1 week with oxygenation at home ranging 84 to 86% and upon triage evaluation 88 to 92% with family eventually bring in the patient for consideration for monoclonal infusions. Patient was admitted to medical surgical telemetry for, Covid PCR did return positive, patient maintained on Covid precautions to be continued through 04/09/21, sputum cultures requested, respiratory viral panel negative, urine antigens negative, Covid inflammatory panel obtained, duplex ultrasound bilateral lower extremities obtained with no acute DVTs noted initially deferred CTPA given initial acute kidney injury, initiated and maintained on IV decadron x 10 doses and given presentation timeline with creatinine clearance greater than 30 patient also initiated and continued on IV remdesivir while inpatient. During admission patient with evidence of acute kidney injury with admission BUN/Cr 29/1.70, prior baseline creatinine noted to be 0.9 however this was in 2013. Patient judiciously hydrated overnight with hold on any nephrotoxic regimen with significant improvement with 03/30/2021 BUN/creatinine 26/0.82. During the admission patient also with noted elevated bilirubin and LFTs with admission total bilirubin 1.60, AST/LT 116/100, likely secondary to acute presentation #1, 03/29/2021 AST/ALT 67/71 with recommended follow-up CMP at follow-up with primary care physician. During the admission patient also consistently had mildly elevated blood sugars therefore be cautious hemoglobin A1c was obtained and noted to be 6.1% with diagnosis of prediabetes. Recommended patient continue ADA diet and have repeat follow-up hemoglobin A1c following institution of diet changes as well as lifestyle changes. Patient also had mildly elevated blood pressures above goal with strong recommendation per discussion to institute lifestyle and diet changes with close follow-up with primary care physician and initiation of regimen if appropriate at that time. Patient discharged home with pulse oximeter initiated prior with noted 91% at rest on room air and with ambulation patient decreased to 87% while ambulating with improvement to 90% on 2 L nasal cannula. Oxygen was set up for discharge to home given these findings. Patient discharged with continued steroid regimen to completion as well as baby aspirin recommended for 2 weeks with concurrent PPI given with discontinuation of both at the 2-week samir. Patient in remission given as to when patient should be reevaluated immediately if his Covid type symptoms worsened. Discharge Time: > 35 Minutes DAY OF DISCHARGE PROGRESS NOTE: Subjective: Patient without acute event overnight per self and nursing report. Patient overnight did have mild desaturations when he was exerting himself in the room with mild oxygen increase to 3 L however this improved by the morning. Patient is up and ambulating and states he is feeling significantly improved. He is eager for discharge and understands that he will go on oxygen supplementation. Patient denies fever, chills, nausea, emesis, abdominal pain, chest pain or worsened dyspnea. Patient agreeable to discharge to home with home oxygen. Patient will be discharged with follow-up with primary care physician within 3-5 days. Objective: T 97.2, heart rate 84, Physical Examination: General: Awake, alert, oriented x 3 and cooperative, seated upright in the PCU bed, improved appearance, notes feeling better. Skin: Normal color, normal turgor, no icterus, no cyanosis. HEENT: AT/NC, EOMI, PERRLA, MMM. Lungs: Still diminished, greater bases, prior rhonchi decreased, effort improved, no evidence of any distress, no rales or wheezing. Heart: Regular rate with regular rhythm; no gallop, rub audible. Abdomen: Soft, NTTP, ND, normalized bowel sounds. Extremities: No cyanosis, clubbing, or edema. Neurological: Patient awake, alert, oriented as noted, cognitive function intact; pupils equally reactive to light and accommodation, cranial nerves II- XII grossly normal, moving all 4 extremities, no focal deficits, strength improving, walking around the room frequently without issue, mildly globally decreased secondary to acute presentation. Psychiatric: Affect appears less fatigued, no acute evidence of depressive or anxiety feelings. Assessment and Plan: Please see hospital summary above. Medical Records Data Medical Nutrition Assessment Dietitian: Malnutrition Criteria Met Start: 03/29/21 15:04 Freq: Status: Active Protocol: Document 03/29/21 15:04 RMA (Rec: 03/29/21 15:04 RMA [id number]) Nutrition Malnutrition Evidence of Malnutrition Exists Yes Malnutrition (severe): Acute Illness/Injury Evidenced By Suboptimal Energy Intake ( Severe),Weight Loss (Severe) Clinical Problem Acute Disease or Injury Related Malnutrition Etiology Severe protein-calorie malnutrition in the context of acute illness related to inadequate oral intake Signs/Symptoms as evidenced by ~5-6% wt loss x 2 weeks and 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 Will add chocolate ensure compact TID w/ meals for calorie/protein repletion. Weight / BMI Weight Weight: 161 lb 9.581 oz Body Mass Index (BMI) 23.6 ABG / Lab / Microbiology Data Result Diagrams: 03/30/21 06:34 03/30/21 06:54 Laboratory: Laboratory Results - last 24 hr 03/30/21 06:34: WBC 8.6, RBC 4.18 L, Hgb 13.0, Hct 38.0 L, MCV 90.9, MCH 31.1, MCHC 34.2, RDW Std Deviation 42.2, RDW Coeff of Yahaira 12.6, Plt Count 180, MPV 11.0, Immature Gran % (Auto) 1.200 H, Neut % (Auto) 77.2 H, Lymph % (Auto) 11.6 L, [place] % (Auto) 7.6, Eos % (Auto) 2.2, Baso % (Auto) 0.2, Absolute Neuts (auto) 6.6, Absolute Lymphs (auto) 0.99, Nucleated RBC % 0, Reactive Lymphocytes RARE 03/30/21 06:54: Sodium 140, Potassium 3.8, Chloride 109 H, Carbon Dioxide 26.0, Anion Gap 5, BUN 26 H, Creatinine 0.82, Estim Creat Clear Calc 76.64, Est GFR (MDRD) Af Amer 117, Est GFR (MDRD) Non-Af 96, BUN/Creatinine Ratio 31.6 H, Glucose 144 H, Calcium 8.5, Total Bilirubin 0.60, AST 67 H, ALT 71 H, Alkaline Phosphatase 86, Total Protein 5.9 L, Albumin 2.2 L, Globulin 3.7, Albumin/Globulin Ratio 0.6 L 03/30/21 06:54: Hemoglobin A1c 6.1 H Microbiology: Microbiology 03/29/21 11:34 Sputum, Expectorated/Coughed Gram Stain - Final 03/29/21 21:42 Urine, Clean Catch Legionella Antigen - Final 03/29/21 21:42 Urine, Clean Catch Streptococcus pneumoniae Antigen (M - Final 03/28/21 16:50 Mucosa - Nasopharyngeal Respiratory Panel (PCR) - Final 03/28/21 11:39 Nasal Secretion SARS-CoV-2 Antigen (Rapid) - Final Radiography Diagnostic Testing: Radiology Impression Venous Doppler Study 03/29/21 07:03 Interpretation Summary No evidence for acute deep venous thrombosis bilateral lower extremities with patent and compressible bilateral great saphenous veins. Ordering Physician: Mulu Marcial Referring Physician: Osmel Barrow Performed By: Ora Curiel RVT D/C Instructions Discharge Diet: 1800 Calorie Control Diet (Recommend starting diabetic diet to assist with reduction of your HgBA1c.) Additional Activity Instructions: YOU MUST MAINTAIN COVID QUARANTINE THROUGH 04/09/21. Call your doctor if you observe: Fever of 101 or Higher, Shortness of breath, Dizziness, Chest pain, Increased palpitations (irregular heartbeat) and Calf discomfort Meaningful Use Info Meaningful Use Diagnoses (Choose all that apply): None applicable Discharge Plan Admission Admit Date/Time: 03/28/21 16:31 Primary Reason for Your Visit: Severe Sepsis, Hypoxia, BL COVID Pneumonia, ENDY, Prediabetes mellitus Attending Provider: Mulu Marcial Primary Care Provider: Osmel Barrow Instructions Patient Instructions: Prediabetes, Coronavirus Disease 2019 (COVID-19): Overview, Coronavirus Disease 2019 (COVID-19): Caring for Yourself or Others, Traveling with Oxygen, Using Oxygen at Home Additional Instructions / Restrictions: Discharge instructions/information: Bilateral Covid pneumonia with acute hypoxia: Your chest x-ray was consistent with bilateral pneumonia secondary to acute Covid viral syndrome and you were started on IV Decadron therapy as well as while inpatient IV remdesivir. Upon discharge you have been continued on steroid regimen and it is important you continue this to completion. During the admission you have also been placed on oxygen which will be continued on discharge to home. It is important you continue oxygen supplementation until you have been weaned off by your physician. You must maintain Covid precautions/quarantine through 04/09/2021 as you are at risk to others until this timeline has been completed. Both your acute kidney injury and your elevated liver functions are associated with your acute presentation with Covid illness. Please have repeat complete metabolic panel follow-up with your primary care physician at follow-up. It is very important that if you feel worse or your oxygen requirement significantly increased you be immediately reevaluated in the emergency room. Unfortunately, it is common for patients to occasionally worsen requiring readmission. Please continue aggressive incentive spirometry 10 times an hour from 7 AM to 7 PM as well as continued deep inspiratory effort and this will continue to help you improve and decrease her oxygen requirements. Prediabetes mellitus type II: During the admission your blood sugars were consistently mildly elevated, potentially secondary to stress response and steroids however to be cautious hemoglobin A1c was checked and noted to be mildly elevated at 6.1% consistent with prediabetes. It is important that this point that you continue make diet and lifestyle changes with follow-up repeat hemoglobin A1c with your primary care physician at a later follow-up date once these lifestyle/diet implementations have been instituted. Mildly elevated blood pressure above goal with no history of hypertension: During the admission your blood pressure was mildly elevated, not significantly therefore what we recommend is continued diet and lifestyle changes especially given prediabetes diagnosis and continued early follow-up with your primary care physician with initiation of oral regimen if you continue to have blood pressures above goal. Discharge Orders/Prescriptions Prescriptions: New dexamethasone [Decadron] 6 mg tablet 6 mg PO DAILY 8 Days Qty: 8 RF: 0 aspirin 81 mg tablet,delayed release (DR/EC) 81 mg PO DAILY 14 Days Qty: 14 RF: 0 pantoprazole [Protonix] 20 mg tablet,delayed release (DR/EC) 20 mg PO BID 14 Days Qty: 28 RF: 0 Referrals / Follow Up: Osmel Barrow MD [Primary Care Provider] - (Please follow-up within 3-5 days to review admission, earlier if any concerns.) Disposition Disposition (needs filled in before D/C Order can be placed): Home Health Service Charges/Coding Visit Charges Inpatient E&M: 55121 Disch Hosp
--- NOTE | 2021-03-30 12:13 | PHA.DC.MR ---
Pharmacy Service has performed discharge medication reconciliation for this patient. Home Medications aspirin 81 mg PO DAILY 14 Days #14 tab 03/30/21 dexamethasone [Decadron] 6 mg PO DAILY 8 Days #8 tab 03/30/21 pantoprazole [Protonix] 20 mg PO BID 14 Days #28 tab 03/30/21 The patient's discharge medication list was reviewed for discrepancies and discrepancies were resolved.
== END 2021-03-30 12:22 | disposition home health service (06) | DRG 871 ==
LOC: ED 16:43 → PCU 17:21
PROVIDERS: Admitting Provider Family Medicine; Emergency Provider Emergency Medicine; PCP Family Medicine; Visit Provider Family Medicine
DX: A41.89 Other specified sepsis (principal); E43 Unspecified severe protein-calorie malnutrition; J12.82 Pneumonia due to coronavirus disease 2019; U07.1 COVID-19; N17.9 Acute kidney failure, unspecified; E86.0 Dehydration; R09.02 Hypoxemia; R65.20 Severe sepsis without septic shock; R03.0 Elevated blood-pressure reading, without diagnosis of hypertension; R73.9 Hyperglycemia, unspecified; Z68.23 Body mass index [BMI] 23.0-23.9, adult; R73.03 Prediabetes; Z66 Do not resuscitate
CPT/HCPCS: 36415; 71045; 80053; 82728; 83036; 83605; 83615; 83880; 84145; 84484; 85025; 85379; 86140; 87040; 87070; 87205; 87426; 87449; 87633; 87635; 93005; 93970; 94640; 97110; 97162; 97166; 97530; 99284; J7030; J7050; U0005; A4216; J0696; U0003

== ENCOUNTER → 2022-06-22 | Outpatient (CLI) | payer MEDICARE, OTHER, SELFPAY ==
--- NOTE | 2022-06-22 10:39 | RAD_ITS ---
STUDY: X-RAY - RIGHT KNEE REASON FOR EXAM: Male, 77 years old. Nontraumatic pain. TECHNIQUE: 4 view(s) of the knee. COMPARISON: None. FINDINGS: Normal visualized distal femur. Normal visualized proximal tibia and fibula. Normal proximal tibiofibular articulation. There is no acute fracture, dislocation or destructive osseous pathology. There is mild degenerative arthrosis of the medial femorotibial compartment. Normal lateral femorotibial compartment. Calcifications are seen within the lateral meniscus. There is mild degenerative arthrosis of the patellofemoral articulation. There is no demonstrated joint effusion. The soft tissue structures are unremarkable. RAD/Knee 4 or More Views IMPRESSION: Degenerative changes of the right knee. Electronically Signed: Carl Tucker DO at 17:28 EST ,
== END | disposition home or self-care (01) ==
LOC: MTRAD 10:37
PROVIDERS: PCP Family Medicine; Referring Provider Family Medicine; Visit Provider Family Medicine
DX: M25.569 Pain in unspecified knee (principal)
CPT/HCPCS: 73564

== ENCOUNTER → 2022-10-01 | Outpatient (CLI) | payer MEDICARE, OTHER, SELFPAY ==
[2022-10-01 12:04] LABS: Absolute Lymphocyte Count 1.82 X10^3/uL (0.83-4.51); Basophil# 0.03 X10^3/uL; Basophil% 0.5 % (0-1); Eosinophil# 0.55 X10^3/uL; Hematocrit 42.4 % (40-54); Hemoglobin 13.8 g/dL (13.0-16.5); Lymphocyte # 1.82 X10^3/ul (0.83-4.51); Lymphocyte % 29.9 % (19-41); Mean Corp Hgb Conc 32.5 g/dL (32-36); Mean Corpuscular Hgb 30.9 pg (27.0-32.0); Mean Corpuscular Volume 95.1 fL (80-94); Mean Platelet Vol. 9.7 fl (6.2-12.0); Monocyte# 0.63 X10^3/uL; Monocyte% 10.4 % (0-10); NRBC Flagged by Analyzer 0 % (0-5); Neutrophil # 3.04 X10^3/uL (2.7-7.7); Platelet Count 206 K/mm3 (150-450); RBC Distribution Width CV 12.5 % (11.6-14.6); RBC Distribution Width SD 43.7 fl (35.1-43.9); Red Blood Count 4.46 M/mm3 (4.6-6.2); White Blood Count 6.1 K/mm3 (4.4-11.0)
--- NOTE | 2022-10-01 12:54 | VDLE_ITS ---
Reason For Study: Rt Leg Swelling RIGHT LEFT GSV is normal. CFV is compressible, spontaneous, phasic, CFV is compressible, spontaneous and phasic. competent, and demonstrates normal FV is compressible, spontaneous and phasic. augmentation. POP V is compressible, spontaneous and phasic. Acute deep vein thrombosis is noted in the T/P Trunk. It is dilated and NONCOMPRESSIBLE. Acute deep vein thrombosis is noted in the Gastrocnemius V. It is dilated and NONCOMPRESSIBLE. PTV is compressible. RT PerV is compressible. Rt Accessory Saphenous vein is DILATED and NONCOMPRESSIBLE, with intraluminal echogenicity beginning 4-5 cm distal of SFJ through distal thigh, and extending into a second accessory branch at the knee. Procedure This is a venous duplex using B-mode, color flow and spectral Doppler. Exam performed in department. The exam was diagnostic. A preliminary report was called and/or faxed to [facility] at Dr. Syed's office. VL/Venous Duplex US, Unilateral Interpretation Summary Acute deep vein thrombosis is noted in the right tibio-peroneal trunk vein, gas trocnemius vein. Acute superficial vein thrombosis noted in the right accessory saphenous vein. Ordering Physician: Torito Syed Referring Physician: Torito Syed Performed By: Victorino Greco RVT
[2022-10-02 12:12] LABS: ALB/GLOB Ratio 1.2 RATIO (0.9-2.4); AST(SGOT) 35 U/L (15-37); Alanine Aminotransfer ALT/SGPT 31 U/L (16-61); Alkaline Phosphatase 98 U/L (45-117); Anion Gap 3 (5-15); BUN 15 mg/dL (7-18); BUN/Creat Ratio 15.2 RATIO (10-20); Chloride 108 mmol/L (98-107); Creatinine, Serum 0.99 mg/dL (0.70-1.30); EST Glomerular Filtration Rate 78 mL/min (>60); Est Glom Filt Rate - Afr Amer 94 mL/min (>60); Globulin 3.4 g/dL (2.2-4.2); Glucose 113 mg/dL (74-106); Protein, Total 7.4 g/dL (6.4-8.2); Sodium Level 139 mmol/L (136-145)
== END | disposition home or self-care (01) ==
PROVIDERS: PCP Family Medicine; Referring Provider Family Medicine; Visit Provider Family Medicine
DX: M79.89 Other specified soft tissue disorders (principal); I80.9 Phlebitis and thrombophlebitis of unspecified site
CPT/HCPCS: 36415; 80053; 85025; 93971

== ENCOUNTER → 2022-11-14 | Outpatient (CLI) | payer MEDICARE, OTHER, SELFPAY ==
--- NOTE | 2022-11-14 08:42 | VDLE_ITS ---
Reason For Study: RLE Acute Embolism RIGHT LEFT GSV is normal. CFV is compressible, spontaneous, phasic, CFV is compressible, spontaneous, phasic, competent, and demonstrates normal competent and demonstrates normal augmentation. augmentation. FV is compressible, spontaneous, phasic, competent and demonstrates normal augmentation. POP V is compressible, spontaneous, phasic, competent and demonstrates normal augmentation. T/P Trunk is compressible. PTV is compressible. RT PerV is compressible. Acute deep vein thrombosis is noted in the Gastrocnemius V. It is dilated and NONCOMPRESSIBLE. Rt Accessory Saphenous vein is DILATED and NONCOMPRESSIBLE, with intraluminal echogenicity beginning prox/mid thigh and extending into a varicosity at the knee. Procedure This is a venous duplex using B-mode, color flow and spectral Doppler. Exam performed in department. The exam was diagnostic. Regression of disease noted from previous study performed 10/01/2022. VL/Venous Duplex US, Unilateral Interpretation Summary Acute deep vein thrombosis is noted in the right gastrocnemius vein. Acute superficial vein thrombosis is noted in the right mid/distal thigh access ory saphenous vein and adjacent varicosities. Ordering Physician: Torito Syed Referring Physician: Torito Syed Performed By: Victorino Greco RVT
== END | disposition home or self-care (01) ==
PROVIDERS: PCP Family Medicine; Referring Provider Family Medicine; Visit Provider Family Medicine
DX: I82.431 Acute embolism and thrombosis of right popliteal vein (principal); I82.409 Acute embolism and thrombosis of unspecified deep veins of unspecified lower extremity
CPT/HCPCS: 93971

== ENCOUNTER → 2023-02-14 | Outpatient (CLI) | payer MEDICARE, OTHER, SELFPAY ==
--- NOTE | 2023-02-14 08:41 | VDLE_ITS ---
Reason For Study: phlebitis RIGHT LEFT GSV is normal. CFV is compressible, spontaneous, phasic, CFV is compressible, spontaneous, phasic, competent, and demonstrates normal competent and demonstrates normal augmentation. augmentation. FV is compressible, spontaneous, phasic, competent and demonstrates normal augmentation. POP V is compressible, spontaneous, phasic, competent and demonstrates normal augmentation. T/P Trunk is compressible. PTV is compressible. RT PerV is compressible. Gastroc V and ASV are partially compressible. Improvement from previous study done 11/14/22. Procedure This is a venous duplex using B-mode, color flow and spectral Doppler. Exam performed in department. The exam was diagnostic. A preliminary report was called and/or faxed to Dr. Syed's office. VL/Venous Duplex US, Unilateral Interpretation Summary Chronic deep vein thrombosis is noted in the right gastrocnemius vein. Chronic superficial vein thrombosis is noted in the right accessory saphenous v ein. Partial resolution of thrombus since prior study Ordering Physician: Torito Syed Performed By: Rupert Jenkins RVBrook
== END | disposition home or self-care (01) ==
LOC: CVS 08:37
PROVIDERS: PCP Family Medicine; Referring Provider Family Medicine; Visit Provider Family Medicine
DX: I80.01 Phlebitis and thrombophlebitis of superficial vessels of right lower extremity (principal)
CPT/HCPCS: 93971